=== PATIENT | female | born 1965 | race Caucasian/White ===

== ENCOUNTER 2020-07-26 06:56 | Observation (INO) ==
[2020-07-26] MEDS ORDERED: CeFAZolin Syr 2,000MG/20 ML 2,000 MG/20 ML SYRINGE IVPB ONE (07:29)
[2020-07-26] MEDS ORDERED: Ringers Solution, Lactated 1,000 ML IVC SCH (07:30)
[2020-07-26] MEDS ORDERED: Dexmedetomidine HCl 400 MCG/100 ML MLS IVC ONE (07:42)
[2020-07-26] MEDS ORDERED: *HR* Propofol 200 MG/20 ML VIAL IVP ONE (07:47)
[2020-07-26] MEDS ORDERED: *HR* FentaNYL (PF) 100 MCG/2 ML VIAL ONE (07:47)
[2020-07-26] MEDS ORDERED: *HR* Succinylcholine 200 MG/10 ML VIAL IVP ONE (07:47)
[2020-07-26] MEDS ORDERED: Ondansetron 4 MG/2 ML VIAL ONE (07:47)
[2020-07-26] MEDS ORDERED: *HR* Rocuronium Bromide 50 MG/5 ML VIAL ONE (07:47)
[2020-07-26] MEDS ORDERED: Lidocaine -MPF 4% 5 ML AMPUL ONE (07:47)
[2020-07-26] MEDS ORDERED: Lidocaine -MPF 2% 2 ML VIAL ONE (07:47)
[2020-07-26] MEDS ORDERED: *HR* Midazolam HCl 2 MG/2 ML VIAL ONE (07:58)
[2020-07-26] MEDS ORDERED: *HR* Magnesium Sulfate 1 GM/2 ML VIAL ONE (08:00)
[2020-07-26] MEDS ORDERED: *HR* Labetalol 20 MG/4 ML SYRINGE IVP PRN (08:02)
[2020-07-26] MEDS ORDERED: Ondansetron 4 MG/2 ML VIAL IVP PRN ×2 (08:02→13:10)
[2020-07-26] MEDS ORDERED: *HR* HYDROcodone/Acet 5/325 mg TABLET PO PRN (08:02)
[2020-07-26] MEDS ORDERED: *HR* HYDROmorphone PF 0.5 MG/0.5 ML SYRINGE IVP PRN (08:02)
[2020-07-26] MEDS ORDERED: Bacitracin 50,000 UNIT, Polymyxin B Sulfate 500,000 UNIT, Sodium Chloride IRRigation 1,... IR ONE (08:15)
[2020-07-26] MEDS ORDERED: Sugammadex Sodium 200 MG/2 ML VIAL IV ONE (09:35)
[2020-07-26] MEDS ORDERED: *HR* HYDROMORPHONE 2 MG/ML VIAL ONE (10:48)
[2020-07-26] MEDS ORDERED: Naloxone 0.4 MG/ML INJ IVP PRN (13:10)
[2020-07-26] MEDS ORDERED: Acetaminophen 325 MG TABLET PO PRN (13:10)
[2020-07-26] MEDS: *HR* OxyCODONE Immed Rel 5 MG TABLET PO PRN ×3 (13:26→21:38)
[2020-07-26] MEDS: Ringers Solution, Lactated 1,000 ML IVC SCH (16:05)
[2020-07-26] MEDS: *HR* HYDROcodone/Acet 5/325 mg TABLET PO PRN ×2 (16:05→23:56)
[2020-07-26] MEDS: Ipratropium/Albuterol Neb 3 ML IH SCH ×2 (16:07→22:34)
[2020-07-26] MEDS: Albuterol 2.5 MG/3 ML NEBULIZER IH SCH ×2 (16:07→19:55)
[2020-07-26] MEDS: CeFAZolin 2 GM/120 ML BAG IVPB SCH ×2 (16:16→23:56)
[2020-07-26] MEDS ORDERED: Melatonin 3 MG TABLET PO PRN (21:00)
[2020-07-26] MEDS: OLANZapine 10 MG TAB.RAPDIS PO SCH (21:39)
[2020-07-26] MEDS: Budesonide/Formoterol 160/4.5 1 PUFF INH IH SCH (22:34)
[2020-07-27] MEDS: *HR* OxyCODONE Immed Rel 5 MG TABLET PO PRN ×3 (01:46→20:05)
[2020-07-27] MEDS: Ipratropium/Albuterol Neb 3 ML IH SCH ×4 (03:24→23:36)
[2020-07-27] MEDS: Ringers Solution, Lactated 1,000 ML IVC SCH ×2 (07:38→09:26)
[2020-07-27] MEDS: OLANZapine 10 MG TAB.RAPDIS PO SCH ×2 (08:28→20:05)
[2020-07-27] MEDS: lamoTRIgine 100 MG TABLET PO SCH (08:28)
[2020-07-27] MEDS: lisinopriL 20 MG TABLET PO SCH (08:29)
[2020-07-27] MEDS: Vitamin E 200 UNIT (90MG) CAPSULE PO SCH (08:30)
[2020-07-27] MEDS: *HR* Rivaroxaban 15 MG TABLET PO SCH (08:30)
[2020-07-27] MEDS ORDERED: traZODone 50 MG TABLET PO SCH (09:00)
[2020-07-27] MEDS ORDERED: BUPROPION HCL 150 MG PO SCH (09:00)
[2020-07-27] MEDS: BuPROPion SR (12 HR) 150 MG TABLET PO SCH (10:33)
[2020-07-27] MEDS: Budesonide/Formoterol 160/4.5 1 PUFF INH IH SCH ×2 (10:49→23:36)
[2020-07-27] MEDS: *HR* HYDROcodone/Acet 5/325 mg TABLET PO PRN (11:50)
[2020-07-28] MEDS: *HR* OxyCODONE Immed Rel 5 MG TABLET PO PRN ×4 (00:17→20:10)
[2020-07-28] MEDS: Ipratropium/Albuterol Neb 3 ML IH SCH ×4 (03:30→21:52)
[2020-07-28] MEDS: *HR* HYDROcodone/Acet 5/325 mg TABLET PO PRN (03:41)
[2020-07-28] MEDS: lamoTRIgine 100 MG TABLET PO SCH (08:14)
[2020-07-28] MEDS: Vitamin E 200 UNIT (90MG) CAPSULE PO SCH (08:15)
[2020-07-28] MEDS: BuPROPion SR (12 HR) 150 MG TABLET PO SCH (08:15)
[2020-07-28] MEDS: OLANZapine 10 MG TAB.RAPDIS PO SCH ×2 (08:15→20:10)
[2020-07-28] MEDS: lisinopriL 20 MG TABLET PO SCH (08:16)
[2020-07-28] MEDS: *HR* Rivaroxaban 15 MG TABLET PO SCH (08:16)
[2020-07-28] MEDS: Budesonide/Formoterol 160/4.5 1 PUFF INH IH SCH ×2 (10:40→21:52)
[2020-07-28] MEDS ORDERED: traZODone 50 MG TABLET PO SCH (21:00)
[2020-07-28] MEDS ORDERED: diazePAM 10 MG TABLET PO PRN (22:09)
[2020-07-29] MEDS: Ipratropium/Albuterol Neb 3 ML IH SCH ×3 (04:44→15:22)
[2020-07-29] MEDS: *HR* OxyCODONE Immed Rel 5 MG TABLET PO PRN ×2 (04:54→14:29)
[2020-07-29] MEDS: Ringers Solution, Lactated 1,000 ML IVC SCH ×2 (07:46→12:10)
[2020-07-29] MEDS: Vitamin E 200 UNIT (90MG) CAPSULE PO SCH (08:26)
[2020-07-29] MEDS: lamoTRIgine 100 MG TABLET PO SCH (08:26)
[2020-07-29] MEDS: lisinopriL 20 MG TABLET PO SCH (08:27)
[2020-07-29] MEDS: *HR* Rivaroxaban 15 MG TABLET PO SCH (08:27)
[2020-07-29] MEDS: BuPROPion SR (12 HR) 150 MG TABLET PO SCH (08:27)
[2020-07-29] MEDS: OLANZapine 10 MG TAB.RAPDIS PO SCH (08:27)
[2020-07-29] MEDS: Budesonide/Formoterol 160/4.5 1 PUFF INH IH SCH (11:18)
[2020-07-29 15:47] VITALS: BP 110/56
[2020-07-29 17:31] LABS: Influenza A PCR Negative (Negative); Influenza B PCR Negative (Negative); Resp. Syncytial Virus PCR Negative (Negative)
[2020-07-29 17:33] LABS: SARS-CoV-2 by PCR (In House) Negative (Negative)
== END 2020-07-29 18:15 ==
LOC: SAMDAY 06:56 → 3NENU 06:56
PROVIDERS: ADMIT Orthopaedic Surgery Orthopaedic Surgery of the Spine; ATTEND Orthopaedic Surgery Orthopaedic Surgery of the Spine